=== PATIENT | male | born 1965 | race African-American/Black ===

== ENCOUNTER 2019-04-16 13:23 | Emergency (ER) | payer MEDICAID, OTHER ==
[~2019-04-16] VITALS: Ht 185.4 cm; Wt 108.9 kg
[2019-04-16] MEDS ORDERED: ONDANSETRON HCL 4 MG/2 ML VIAL IV ONE (14:00)
[2019-04-16 14:25] LABS: Basophils # (auto) 0 uL; Basophils % (auto) 0.8 % (0.0-2.0); Eosinophils # (auto) 0 uL; Eosinophils % (auto) 0.4 % (0.0-7.0); Hematocrit 50.8 % (41.0-53.0); Hemoglobin 16.9 g/dL (13.5-17.5); Lymphocytes # (auto) 0.5 uL; Lymphocytes % (auto) 8.6 % (10.0-50.0); Mean Corpuscular Hgb Conc. 33.4 g/dL (32.0-36.0); Mean Corpuscular Volume 89.9 fL (80.0-100.0); Monocytes # (auto) 0.3 uL; Monocytes % (auto) 6.5 % (0.0-12.0); Neutrophils # (auto) 4.5 uL; Neutrophils % (auto) 83.7 % (37.0-80.0); Platelet Count (auto) 263 10^3/uL (140-450); Red Blood Cells 5.65 10^6/uL (4.5-5.90); Red Cell Distribution Width 14.4 % (11.8-14.3); White Blood Cell 5.4 10^3/uL (4.4-10.8)
[2019-04-16 14:48] LABS: Albumin 4.1 g/dL (3.4-5.0); Anion Gap 2 (5-15); Blood Urea Nitrogen 13 mg/dL (7-18); Calcium 9.7 mg/dL (8.5-10.1); Carbon Dioxide 32 mmol/L (21-32); Chloride 107 mmol/L (98-107); Glucose 125 mg/dL (74-106); Potassium 4.6 mmol/L (3.5-5.1); Sodium 141 mmol/L (136-145)
[2019-04-16 14:53] LABS: Alanine Aminotransferase 42 U/L (16-61); Alkaline Phosphatase 83 U/L (45-117); Aspartate Aminotransferase 29 U/L (15-37); BUN/Creatinine Ratio 9.4; Bilirubin, Total 0.7 mg/dL (0.2-1.0); GFR African American 69 mL/min; GFR Non-African American 57 mL/min; Total Protein 8.6 g/dL (6.4-8.2)
[2019-04-16 15:13] LABS: Alcohol, Urine < 3.0 mg/dL (0-5); Amphetamine Screen, Urine POSITIVE (NEGATIVE); Barbiturate Scree,Urine NEGATIVE (NEGATIVE); Benzodiazephine Screen, Urine NEGATIVE (NEGATIVE); Cannabinoid Screen, Urine NEGATIVE (NEGATIVE); Cocaine Screen, Urine NEGATIVE (NEGATIVE); Opiate Scree,Urine NEGATIVE (NEGATIVE); Phencyclidine Screen, Urine NEGATIVE (NEGATIVE)
[2019-04-16] MEDS ORDERED: cloNIDine HCL 0.1 MG TAB PO ONE (16:00)
[2019-04-16 18:20] VITALS: BP 141/90
== END 2019-04-16 18:26 | disposition home or self-care (01) ==
LOC: ER 13:45
DX: I10 Essential (primary) hypertension (principal); R11.2 Nausea with vomiting, unspecified; R51 Headache; F19.10 Other psychoactive substance abuse, uncomplicated
CPT/HCPCS: 36415; 70450; 80053; 80307; 84484; 85025; 93005; 96374; 99284; J2405

== ENCOUNTER 2020-02-16 22:39 | Emergency (ER) | payer MEDICAID ==
[~2020-02-16] VITALS: Ht 185.4 cm; Wt 108.9 kg
[2020-02-16 22:48] VITALS: BP 136/82
[2020-02-16] MEDS ORDERED: diphenhdrAMINE HCL 25 MG CAP PO ONE (23:00)
[2020-02-16] MEDS ORDERED: methylPREDNISolone SOD SUCC 125 MG/2 ML VL IM ONE (23:45)
== END 2020-02-16 23:58 | disposition home or self-care (01) ==
LOC: ER 22:39
DX: L23.9 Allergic contact dermatitis, unspecified cause (principal); I10 Essential (primary) hypertension
CPT/HCPCS: 96372; 99283; J2930

== ENCOUNTER 2021-02-16 11:52 | Emergency (ER) | payer MEDICAID ==
[~2021-02-16] VITALS: Ht 182.9 cm; Wt 38.6 kg
[2021-02-16 11:57] VITALS: BP 143/68
[2021-02-16 13:00] LABS: Urine WBC None Seen /hpf (0 - 3)
[2021-02-16 13:18] LABS: Basophils # (auto) 0 10 ^3/uL (0-0.2); Eosinophils # (auto) 0.3 10 ^3/uL (0-0.8); Eosinophils % (auto) 5.4 % (0.0-7.0); Hematocrit 40.8 % (41.0-53.0); Hemoglobin 13.7 g/dL (13.5-17.5); Lymphocytes # (auto) 1.2 10 ^3/uL (0.4-5.4); Lymphocytes % (auto) 21.1 % (10.0-50.0); Mean Corpuscular Hemoglobin 29.4 pg (28.0-32.0); Mean Corpuscular Hgb Conc. 33.6 g/dL (32.0-36.0); Mean Corpuscular Volume 87.5 fL (80.0-100.0); Monocytes # (auto) 0.5 10 ^3/uL (0-1.3); Monocytes % (auto) 8.8 % (0.0-12.0); Neutrophils # (auto) 3.8 10 ^3/uL (1.6-8.6); Neutrophils % (auto) 64.7 % (37.0-80.0); Nucleated Red Blood Cells % 0.1 %; Red Blood Cells 4.67 10^6/uL (4.5-5.90); Red Cell Distribution Width 13.7 % (11.8-14.3); White Blood Cell 5.8 10^3/uL (4.4-10.8)
[2021-02-16 13:21] LABS: Urine Bacteria NONE SEEN /hpf (None Seen); Urine Blood Negative /uL (Negative); Urine Specific Gravity 1.016 (1.001-1.035)
[2021-02-16 13:27] LABS: INR 0.98 (0.9-1.15)
[2021-02-16 13:37] LABS: Albumin 3.1 g/dL (3.4-5.0); Calcium 9.3 mg/dL (8.5-10.1); Magnesium 2.5 mg/dL (1.6-2.6); Potassium 4.4 mmol/L (3.5-5.1)
[2021-02-16 13:41] LABS: BUN/Creatinine Ratio 9.2; Bilirubin, Total 0.2 mg/dL (0.2-1.0); Total Protein 7.2 g/dL (6.4-8.2)
== END 2021-02-16 15:59 | disposition home or self-care (01) ==
LOC: ER 11:52
DX: R10.9 Unspecified abdominal pain (principal); R30.0 Dysuria; I10 Essential (primary) hypertension
CPT/HCPCS: 36415; 74176; 80053; 81001; 83605; 83690; 83735; 85025; 85610